=== PATIENT | male | born 2005 | race Caucasian/White ===

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

== ENCOUNTER 2024-04-13 07:34 | Emergency (ER) | payer BC, SELFPAY ==
--- NOTE | ~2024-04-13 | CT_ITS ---
EXAMINATION: CT abdomen pelvis wo con DATE: 04/13/2024 08:20 INDICATION: Flank pain TECHNIQUE: Computed tomography (CT) of the abdomen and pelvis was performed without intravenous contr ast. Automated exposure control and iterative reconstruction technique were employed. Exam dose: 133 1.33 mGy-cm total exam DLP. COMPARISON: 01/24/2022 CT abdomen pelvis FINDINGS: The lung bases are clear. Normal heart size. No pericardial or pleural effusion. The liver, gallbladder, bile ducts, pancreas, pancreatic duct and spleen are unremarkable. Normal morphology of the adrenal glands. There is a pinpoint calculus in the distal right ureter with mild right proximal hydroureteronephrosi s. No other urinary tract calculus or left hydroureteronephrosis The bladder is evacuated. The prostate gland and seminal vesicles appear normal. Normal caliber of the abdominal aorta. No intraperitoneal or retroperitoneal or pelvic mass lesion or adenopathy or ascites. Normal appendix. No bowel obstruction or intraperitoneal free air. Multiple shotty nonspecific mildly prominent but nonenlarged mesenteric and right lower quadrant lymph nodes. Included skeletal structures are unremarkable; no suspicious osteolytic or osteoblastic lesions. IMPRESSION: Pinpoint distal right ureteral calculus with mild proximal right hydroureteronephrosis Reviewed, dictated and finalized at [facility] Reviewed, dictated and finalized at [facility] [employer] IMPRESSION: Pinpoint distal right ureteral calculus with mild proximal right h ydroureteronephrosis
[2024-04-13 07:41] VITALS: BP 149/99; PULSE 73; RESP 16; TEMP 36.8; O2SAT 97
[2024-04-13] MEDS: ONDANSETRON INJ 4 MG/2 ML VIAL IV PUSH (08:01)
[2024-04-13] MEDS: SODIUM CHLORIDE 0.9% IV 1,000 ML 999 ML IV CONT (08:02)
[2024-04-13] MEDS: KETOROLAC 30 MG/ML VIAL (*BKC) IV PUSH (08:02)
[2024-04-13 08:12] LABS: Basophils Percent Auto 0.4 % (0.2-1.2); Eosinophils Absolute Auto 0.3 K/mm3 (0-0.3); Eosinophils Percent Auto 2.6 % (0-4.4); Hematocrit 46.1 % (42.0-52.0); Hemoglobin 15.9 g/dL (14.0-18.0); Immature Granulocyte Absolute 0.04 K/mm3 (0.00-0.031); Immature Granulocyte Percent A 0.4 % (0-0.5); Lymphocytes Absolute Auto 2.22 K/mm3 (0.9-3.2); Mean Corpuscular HGB Conc 34.5 g/dl (32-36); Mean Corpuscular Hemoglobin 28.9 pg (26-34); Mean Corpuscular Volume 83.7 fl (80-100); Monocytes Absolute Auto 0.8 K/mm3 (0.1-0.6); Monocytes Percent Auto 8.3 % (2.6-8.5); Neutrophils Absolute Auto 6.3 K/mm3 (1.3-6.7); Neutrophils Percent Auto 65.3 % (45.5-73.1); Platelet Count Result 262 k/mm3 (150-375); Red Blood Count 5.51 M/mm3 (4.6-6.20); Red Cell Distribution Width 12.4 % (11.5-14.5); White Blood Count 9.7 K/mm3 (4.5-10.0)
[2024-04-13 08:23] LABS: Alanine Aminotransferase 48 U/L (6-50); Albumin Level 4.8 g/dL (3.5-5.1); Alkaline Phosphatase 126 U/L (38-126); Anion Gap 9 mmol/L (4-12); Aspartate Amino Transferase 29 U/L (17-59); Blood Urea Nitrogen 9 mg/dL (9-20); Calcium 9.5 mg/dL (8.4-10.2); Carbon Dioxide 23 mmol/L (22-30); Chloride 108 mmol/L (98-107); Estimated CRCL calculation 140 ml/min; Estimated Glomerular Filt Rate > 60; Glucose 130 mg/dL (65-110); Potassium 3.8 mmol/L (3.4-5.0); Sodium 140 mmol/L (137-145)
[2024-04-13] MEDS: MORPHINE SULFATE (*CRX) 4 MG/ML INJ IV PUSH (09:49)
[2024-04-13 09:53] VITALS: BP 127/65; PULSE 86; RESP 18; O2SAT 98
[2024-04-13 09:56] LABS: Bacteria Urine None Seen /hpf; Mucus Urine Present /lpf; Need Manual Microscopic Reviewed; RBC Urine >100 /hpf (0-2); Squamous Epithelial Cell Urine Occasional /hpf (Few)
[2024-04-13 09:57] LABS: Add Urine Microscopic? YES; Appearance Urine Turbid (Clear); Bilirubin Urine 2+ (Negative); Blood Urine 3+ (Negative); Color Urine Orange (Yellow); Glucose Urine UA Trace mg/dL (Negative); Ketones Urine Trace mg/dL (Negative); Leukocyte Esterase Ur 1+ LEU/UL (Negative); Nitrate Urine Negative (Negative); Protein Urine 2+ mg/dL (Negative); Specific Grav Ur 1.035 (1.001-1.035); pH Urine 5.5 (5.0-9.0)
--- NOTE | 2024-04-13 10:15 | ED.GENADULT ---
HPI - General Adult General Chief complaint: Urogenital-Male Stated complaint: lower back pain vomiting, hx of kidney stones Time Seen by Provider: 04/13/24 07:39 History of Present Illness HPI narrative: Patient is a 18-year-old male who presents ER with right-sided flank pain. Moving around into lower abdomen on the right side. Associated with nausea vomiting. No urinary frequency urgency or dysuria. No hematuria. Has history kidney stones and this feels similar. Related Data Allergies Allergy/AdvReac Type Severity Reaction Status Date / Time cefdinir Allergy Intermediate FACIAL Verified 04/13/24 07:48 SWELLING Review of Systems Review of Systems: All systems reviewed & are unremarkable except as noted in HPI and below Constitutional: Constitutional: Reports no additional constitutional complaints Cardiovascular: Cardiovascular: Reports no additional cardiovascular complaints Respiratory: Respiratory: Reports no additional respiratory complaints Gastrointestinal: Gastrointestinal: Reports no additional gastrointestinal complaints Genitourinary: Genitourinary: Reports no additional male genitourinary complaints PMFSH Past Medical History Medical History Patient denies medical problems Surgical History Surgical History No pertinent past surgical history Social History Social History Smoking status: Never smoker Second hand tobacco smoke exposure: No Alcohol intake: never Substance use: never Substance use type: does not use Gender identity (if verbalized by the patient): Male Exam Narrative: GENERAL: Uncomfortable-appearing, well-nourished, and in no acute distress. HEAD: Normocephalic, atraumatic. ENT: Mucous membranes moist. CHEST: Clear to auscultation. No respiratory distress. HEART: Regular rate and rhythm. Normal peripheral pulses. ABDOMEN: Soft, nontender, nondistended. EXTREMITIES: Normal range of motion. No edema. SKIN: Warm, dry, no rash. NEURO: Alert and oriented x3. PSYCH: Normal mood and affect. Course Course Emergency Course: Pain improved. Informed of results. Discharge. Vital Signs Vital signs: Vital Signs Temperature 98.3 F 04/13/24 07:41 Pulse Rate 73 04/13/24 07:41 Respiratory Rate 16 04/13/24 07:41 Blood Pressure 149/99 H 04/13/24 07:41 Pulse Oximetry 97 04/13/24 07:41 Oxygen Delivery Room Air 04/13/24 07:41 Temperature 98.3 F 04/13/24 07:41 Pulse Rate 86 04/13/24 09:53 Respiratory Rate 18 04/13/24 09:53 Blood Pressure 127/65 04/13/24 09:53 Pulse Oximetry 98 04/13/24 09:53 Oxygen Delivery Room Air 04/13/24 07:41 Medical Decision Making Vital Signs Vital Signs: Vital Signs Temperature 98.3 F 04/13/24 07:41 Pulse Rate 73 04/13/24 07:41 Respiratory Rate 16 04/13/24 07:41 Blood Pressure 149/99 H 04/13/24 07:41 Pulse Oximetry 97 04/13/24 07:41 Oxygen Delivery Room Air 04/13/24 07:41 Temperature 98.3 F 04/13/24 07:41 Pulse Rate 86 04/13/24 09:53 Respiratory Rate 18 04/13/24 09:53 Blood Pressure 127/65 04/13/24 09:53 Pulse Oximetry 98 04/13/24 09:53 Oxygen Delivery Room Air 04/13/24 07:41 Lab Data 04/13/24 08:06 04/13/24 08:06 Labs: Lab Results 04/13/24 04/13/24 Range/Units 08:06 09:40 WBC 9.7 (4.5-10.0) K/mm3 RBC 5.51 (4.6-6.20) M/mm3 Hgb 15.9 (14.0-18.0) g/dL Hct 46.1 (42.0-52.0) % MCV 83.7 (80-100) fl MCH 28.9 (26-34) pg MCHC 34.5 (32-36) g/dl RDW 12.4 (11.5-14.5) % Plt Count 262 (150-375) k/mm3 MPV 10.0 (7.4-10.4) fl Immature Gran % (Auto) 0.4 (0-0.5) % Neut % (Auto) 65.3 (45.5-73.1) % Lymph % (Auto) 23.0 (18.3-44.2) % [place] % (Auto) 8.3 (2.6-8.5) % Eos % (Auto) 2.6 (0-4.4) % Baso % (Auto) 0.4 (0.2-1.2) % Lymph # (Auto) 2.22 (0.9-3.2) K/mm3 [place] # (Auto) 0.8 H (0.1-0.6) K/mm3 Eos # (Auto) 0.3 (0-0.3) K/mm3 Baso # (Auto) 0.0 (0.0-0.1) K/mm3 Abs Immat Gran (auto) 0.04 H (0.00-0.031) K/mm3 Absolute Neuts (auto) 6.3 (1.3-6.7) K/mm3 Absolute Nucleated RBC 0.000 (0.0-0.012) K/mm3 Nucleated RBC % 0.0 (0.0-0.2) % Sodium 140 (137-145) mmol/L Potassium 3.8 (3.4-5.0) mmol/L Chloride 108 H (98-107) mmol/L Carbon Dioxide 23 (22-30) mmol/L Anion Gap 9 (4-12) mmol/L BUN 9 (9-20) mg/dL Creatinine 1.00 (0.7-1.3) mg/dL Estim Creat Clear Calc 140 ml/min Estimated GFR > 60 (59 - ) Glucose 130 H (65-110) mg/dL Calcium 9.5 (8.4-10.2) mg/dL Total Bilirubin 1.0 (0.2-1.3) mg/dL AST 29 (17-59) U/L ALT 48 (6-50) U/L Alkaline Phosphatase 126 (38-126) U/L Total Protein 8.0 (6.3-8.2) g/dL Albumin 4.8 (3.5-5.1) g/dL Urine Color [place] H (Yellow) Urine Appearance Turbid H (Clear) Urine pH 5.5 (5.0-9.0) Ur Specific [place] 1.035 (1.001-1.035) Urine Protein 2+ H (Negative) mg/dL Urine Glucose (UA) Trace H (Negative) mg/dL Urine Ketones Trace H (Negative) mg/dL Ur Blood (Man) 3+ H (Negative) Urine Nitrate Negative (Negative) Urine Bilirubin 2+ H (Negative) Urine Urobilinogen 1.0 (<2.0) mg/dL Add Ur Microanalysis Reviewed Leukocyte Esterase Rfl 1+ H (Negative) HEATH/UL Urine RBC >100 H (0-2) /hpf Urine WBC 11-20 H (0-3) /hpf Ur Squamous Epith Cells Occasional (Few) /hpf Urine Bacteria None seen /hpf Urine Casts 11-20 Urine Mucus Present /lpf Imaging Data Radiologist's impression: ITS Impressions Abdomen/Pelvis CT 04/13/24 08:43 IMPRESSION: Pinpoint distal right ureteral calculus with mild proximal right hydroureteronephrosis Discharge Plan Discharge Clinical Impression: Ureterolithiasis Patient Disposition: Home, Self-Care Condition: Stable Instructions: Ureteral Stones (ED) Additional Instructions: Return to the emergency department if you develop severe abdominal pain, severe nausea and vomiting to the point where you are unable to keep down fluids, if you develop chest pain or difficulty breathing, blood in your stool, dizziness or fainting, or if you develop any other new or concerning symptoms as these could be signs of more serious medical illness. Try to stay well hydrated. Patient Language: [place] Prescriptions: New hydrocodone-acetaminophen 5-325 mg tablet 1 tablet PO Q6H PRN (Reason: pain) Qty: 10 0RF tamsulosin 0.4 mg capsule 0.4 mg PO DAILY Qty: 5 0RF ondansetron 4 mg tablet,disintegrating 4 mg PO Q6H PRN (Reason: nausea and vomiting) Qty: 10 0RF No Action famotidine [Pepcid] 40 mg tablet 40 mg PO DAILY Qty: 10 0RF prednisone 50 mg tablet 50 mg PO DAILY Qty: 5 0RF Follow-up/Referrals: Raf Callahan MD [Physician] - 1 Week PHYSICIAN,FLEET MANAGER [Primary Care Provider] -
--- OUTSIDE RECORDS SUMMARY | 2024-04-20 04:23 | XMS_ITS | Referral Summary ---
Author Organization [facility] [employer] Address [address] [place] [address] Care Team Providers Care Hospice Care Transitions Coordinator Name Role Phone Seun Phillips MD Primary Care Provider [phone] Source Comments [facility] [employer],non-owned Affiliates and Associated Physician Practices is amultiple site organization consisting of ambulatory clinics and hospital sitesin [place], [place], [place] and [place]. This disclosure is being madepursuant to the Care Everywhere program and may not contain all information available regarding this patient. Last updated 17.[facility] [employer] Allergies Active Allergy Reactions Criticality Noted Date Comments Omnicef Swelling 01/10/2010 Medications * Be aware that medications may not be up to date on this document. Alwaysverify current medications with the patient. Medication Sig Dispensed Refills Start Date End Date Status ibuprofen (ADVIL; MOTRIN) 100 MG/5ML SUSP suspension Take 300 mg by mouth every 6 hours as needed. Active ondansetron (ZOFRAN) 4 MG tablet Take 1 Tab by mouth every 6 hours as needed for Nausea/Vomiting. 4 Tab 0 01/10/2010 Active Active Problems Problem Noted Date Diagnosed Date Fever 01/10/2010 Abdominal pain, epigastric 01/10/2010 Social History Tobacco Use Types Packs/Day Years Used Date Smoking Tobacco: Never Assessed Sex and Gender Information Value Date Recorded Sex Assigned at Not on file Gender Identity Not on file Sexual Orientation Not on file Last Filed Vital Signs Vital Sign Reading Time Taken Comments Blood Pressure 114/58 03/11/2012 8:10 AM QUALITY IMPROVEMENT CONSULTANT Pulse 92 03/11/2012 8:10 AM QUALITY IMPROVEMENT CONSULTANT Temperature 37.1 ??C (98.8 ??F) 03/11/2012 8:25 AM CS T Respiratory Rate 22 03/11/2012 8:10 AM QUALITY IMPROVEMENT CONSULTANT Oxygen Saturation 100% 01/10/2010 3:31 PM CDT Inhaled Oxygen Concentration - - Weight 44.9 kg (98 lb 15.8 oz) 03/11/2012 8:10 A M QUALITY IMPROVEMENT CONSULTANT Height - - Body Mass Index - - Plan of Treatment Not on file Care Teams Hospice Care Transitions Coordinator Relationship Specialty Start Date End Date Seun Phillips MD PCP - General Pediatrics 08/06/13
--- OUTSIDE RECORDS SUMMARY | 2024-04-20 04:23 | XMS_ITS | Encounter Summary ---
Author Organization [facility] Address [address] [place] [address] Care Team Providers Care Rewinder Name Role Phone Seun Phillips MD Primary Care Provider [phone] Reason for Visit * Reason Onset Date Comments Referral 04/08/2020 Encounter Details Date Type Department Care Team (Late st Contact Info) Description 04/08/[address] [facility] [employer] [facility] [place] [address] Bekah Nunez, regulatory scientist Social History Tobacco Use Types Packs/Day Years Used Date Smoking Tobacco: Never Assessed Sex and Gender Information Value Date Recorded Sex Assigned at Not on file Gender Identity Not on file Sexual Orientation Not on file documented as of this encounter Plan of Treatment Not on file documented as of this encounter Visit Diagnoses Not on filedocumented in this encounter Care Teams Rewinder Relationship Specialty Start Date End Date Seun Phillips MD PCP - General Pediatrics 08/06/13 documented as of this encounter
--- OUTSIDE RECORDS SUMMARY | 2024-04-20 04:23 | XMS_ITS | Encounter Summary ---
Author Organization [facility] Address [address] [place] [address] Care Team Providers Care Pin Inserter Name Role Phone Seun Orta MD Primary Care Provider Reason for Visit * Reason Comments Fever Fever since sat. Pt to pmd today and sent here for xray to r/o pneumonia and for dehydration. FSC neg at PMD. Emesis x1 yesterday and today. LCTAB w/ good aeration and no increased wob. Sats 100% on RA. Urine x 2 today w/ last uop at 1315. Encounter Details Date Type Department Care Team (Late st Contact Info) Description 01/10/2010 4:15 PM CDT - 01/10/2010 6:30 PM CDT Emergency ER at [address] [id number] Conversion, Doctor Jose Flores MD [address] [place] [id number] Fever; Abdominal pain, epigastric Discharge Disposition: Home or Self Care Social History Tobacco Use Types Packs/Day Years Used Date Smoking Tobacco: Never Assessed Sex and Gender Information Value Date Recorded Sex Assigned at Not on file Gender Identity Not on file Sexual Orientation Not on file documented as of this encounter Last Filed Vital Signs Vital Sign Reading Time Taken Comments Blood Pressure 110/62 01/10/2010 6:29 PM CDT Pulse 90 01/10/2010 6:29 PM CDT Temperature 36.7 ??C (98 ??F) 01/10/2010 6:29 PM CDT Respiratory Rate 22 01/10/2010 6:29 PM CDT Oxygen Saturation 100% 01/10/2010 3:31 PM CDT Inhaled Oxygen Concentration - - Weight 31.8 kg (70 lb 1.7 oz) 01/10/2010 3:31 PM CDT Height - - Body Mass Index - - documented in this encounter Discharge Instructions * Discharge Instructions* Ashvin Varela MD - 01/10/2010 6:18 PM CDT Abdominal Pain (Non-Specific) Your exam might not show the exact reason you have abdominal pain. Since there are many different causes of abdominal pain, another checkup and more tests may be needed. It is very important to follow up for lasting (persistent) or worsening symptoms. A possible cause of abdominal pain in any person who still has their appendix is acute appendicitis. Appendicitis is often hard to diagnosis. Normal blood tests, urine tests, ultrasound and CAT Scan do not completely rule out early appendicitis orother causes of abdominal pain. Sometimes, only the changes which happen over time will allow appendicitis and other causes of abdominal pain to be determined. Other potential problems that may require surgery may also take time to become more apparent. Because of this, it is important you follow all of the instructions below. HOME CARE INSTRUCTIONS ?? Rest. ?? Do not eat solid food until your pain is gone. ?? While you have pain: Stay on a clear liquid diet. A clear liquid is one you can see through (water, weak tea, broth or bouillon, mikael angely, jell-o, New- Aid, Gatorade, apple juice, popsicles or ice chips). ?? When your pain is gone: Start a light diet (dry toast, crackers, applesauce, white rice, bananas, broth or bouillon). Increase the diet slowly as long as it does not bother you. No dairy products (including cheese and eggs) and no spicy, fatty, fried or high fiber foods. ?? No alcohol, caffeine or cigarettes. ?? Take your regular medicines unless your caregiver told you not to. ?? Take any prescribed medicine as directed. ?? Only take dexw-tcl-yaoacpz or prescription medicines for pain, discomfort or fever as directed by your caregiver. If your caregiver has given you a follow-up appointment, it is very important to keep that appointment. Not keeping the appointment could result in a permanent injury and/or lasting (chronic) pain and/or disability. If there is any problem keeping the appointment, you must call back to this facility for assistance. SEEK IMMEDIATE MEDICAL CARE IF: ?? Your pain is not gone in 24 hours. ?? Your pain becomes worse, changes location or feels different. ?? You have a fever or shaking chills. ?? You keep throwing up or can not drink liquids. ?? You see blood when you throw up or see blood in your bowel movements. ?? Your bowel movements become dark or black. ?? You move your bowels frequently. ?? Your bowel movements stop (become blocked) or you can not pass gas. ?? You have bloody, frequent or painful urination. ?? Your skin or the whites of your eyes look yellow. ?? Your stomach becomes bloated or bigger. ?? You notice vaginal bleeding or discharge. ?? You have dizziness or fainting. ?? You have chest or back pain. ?? There are new symptoms or there is anything else that worries you. If you have questions or concerns, call your caregiver. MAKE SURE YOU: ?? Understand these instructions. ?? Will watch your condition. ?? Will get help right away if you are not doing well or get worse. Document Released: 03/26/2006 Document Re-Released: 03/08/2009 ExitCare?? Patient Information ??2009 [employer]. Abdominal Pain Abdominal (belly) pain can be caused by many things. Your caregiver decides the seriousness of yourpain by an examination and possibly blood tests and x-rays. Many cases can be observed and treated at home. Most abdominal pain in children is functional. This means it is not caused by a disease andwill probably improve without treatment. However, in many cases, more time must pass before a clear cause of the pain can be found. Before that point, it may not be known if you need more testing, orif hospitalization or surgery is needed. HOME CARE INSTRUCTIONS: ?? Do not take or give laxatives unless directed by your caregiver. ?? Take pain medication only if ordered by your caregiver. ?? Only take xagj-wqz-judgfsj or prescription medicines for pain, discomfort or fever as directed by your caregiver. ?? Try a clear liquid diet - broth, tea, or water as ordered by your caregiver. Slowly move to a bland diet as tolerated. SEEK IMMEDIATE MEDICAL ATTENTION IF: ?? The pain does not go away. ?? An oral temperature above 102?? F (38.9?? C) develops or as directed by your caregiver. ?? Repeated vomiting occurs. ?? The pain is felt only in portions of the abdomen. The right side could possibly be appendicitis.In an adult, the left lower portion of the abdomen could be colitis or diverticulitis. ?? Blood is being passed in stools (bright red or black tarry stools). MAKE SURE YOU: ?? Understand these instructions. ?? Will watch your condition. ?? Will get help right away if you are not doing well or get worse. Document Released: 03/26/2006 Document Re-Released: 06/22/2009 ExitCare?? Patient Information ??2009 [employer]. * Discharge Instructions* Document, Scanned - 01/13/2010 7:56 AM CDT documented in this encounter Medications at Time of Discharge Medication Sig Dispensed Refills Start Date End Date ibuprofen (ADVIL; MOTRIN) 100 MG/5ML SUSP suspension Take 300 mg by mouth every 6 hours as needed. ondansetron (ZOFRAN) 4 MG tablet Take 1 Tab by mouth every 6 hours as needed for Nausea/Vomiting. 4 Tab 0 01/10/2010 documented as of this encounter ED Notes * Dahiana Sullivan RN - 01/10/2010 6:30 PM CDT Pt discharged home with mom and grandma. No acute distress. * Dahiana Sullivan RN - 01/10/2010 6:28 PM CDT Pt tolerated enema well. Had formed stool x 2. Mom stated she is ready to go home now. * Jose Flores MD - 01/10/2010 4:21 PM CDT 01/10/2010 4:21 PM Jovanny Zaman [id number] History Chief Complaint Patient presents with ??? Fever Fever since sat. Pt to pmd today and sent here for xray to r/o pneumonia and for dehydration. FSC neg at PMD. Emesis x1 yesterday and today. LCTAB w/ good aeration and no increased wob. Sats 100% on RA. Urine x 2 today w/ last uop at 1315. HPI Comments: 4yo male with fever x 3 days or some emesis no diarrhea some epigastric discomfort Here via PMD's office for evalaution PMH unremarkable ROS no fever no N/V/D PE wn wd in no distress pink Ears- lungs clear RRR abd soft NT,ND alert awake CBC, Chem 7, amylase - wnl CXR, abd obstructive series +FOS - needs a fleets enema IV NS bolus Home on miralax I have personally seen and examined this patient. I have fully participated in the care of this patient. I have reviewed all pertinent clinical information, including history, physical exam and plan.I have reviewed the nurses notes. I have reviewed available labs and radiographic studies. Viral syndrone Dehydration constipation No past medical history on file. No past surgical history on file. History Social History ??? Marital Status: Single Spouse Name: N/A Number of Children: N/A ??? Years of Education: N/A Occupational History ??? Not on file. Social History Main Topics ??? Tobacco Use: Not on file ??? Alcohol Use: Not on file ??? Drug Use: Not on file ??? Sexually Active: Not on file Other Topics Concern ??? Not on file Social History Narrative ??? No narrative on file Medications Current outpatient prescriptions Medication Sig Dispense Refill ??? ibuprofen (ADVIL; MOTRIN) 100 MG/5ML SUSP suspension Take 100 mg by mouth every 6 hours as needed. Review of Systems BP 108/71 Pulse 146 Temp 102.8 ??F Resp 20 Wt 31.8 kg (70 lb 1.7 oz) Physical Exam Procedures Procedures EKG Interpretation Lab/SPO2 Interpretation Medical Decision Making I have reviewed the: Nursing Notes and Vitals. I have interpreted the following results: X-Ray. Progress Notes Sent in by PMD - see labs IV fluids KUB +FOS Needs fleets enema ED Plan/Course Fever not obvious in terms of source Home on miralax Clinical Impression Dehydration Constipation Febrile illness Viral syndrone Encounter Diagnosis Name Primary? FEVER * Ashvin Varela MD - 01/10/2010 4:00 PM CDT 01/10/2010 4:00 PM Jovanny Zaman [id number] History Chief Complaint Patient presents with ??? Fever Fever since sat. Pt to pmd today and sent here for xray to r/o pneumonia and for dehydration. FSC neg at PMD. Emesis x1 yesterday and today. LCTAB w/ good aeration and no increased wob. Sats 100% on RA. Urine x 2 today w/ last uop at 1315. HPI Comments: Pt with fever and epigastric pain x2 days. Saw PMD who wants IVF and CXR. Poor PO. Vomitting 1-2x for three days. No diarrhea. Fever The history is provided by the patient and parent. The current episode started 2 days ago. The problem occurs constantly. The maximum temperature noted was 103 - 104 F. There has been vomiting, cough, abdominal pain, decreased appetite and decreased urine volume. There has been no chest pain, no sleepiness, no diarrhea, no congestion, no headaches, no sore throat, no muscle aches, no URI, no ear pain, no chills and no rash.The vomiting occurs rarely. The emesis has an appearance of stomach contents. The vomiting is associated with pain. No past medical history on file. No past surgical history on file. History Social History ??? Marital Status: Single Spouse Name: N/A Number of Children: N/A ??? Years of Education: N/A Occupational History ??? Not on file. Social History Main Topics ??? Tobacco Use: Not on file ??? Alcohol Use: Not on file ??? Drug Use: Not on file ??? Sexually Active: Not on file Other Topics Concern ??? Not on file Social History Narrative ??? No narrative on file Medications Current outpatient prescriptions Medication Sig Dispense Refill ??? ibuprofen (ADVIL; MOTRIN) 100 MG/5ML SUSP suspension Take 100 mg by mouth every 6 hours as needed. Review of Systems Constitutional: Positive for fever, activity change and appetite change. Negative for chills. HENT: Positive for neck stiffness. Negative for congestion, sore throat and rhinorrhea. Respiratory: Positive for cough. Cardiovascular: Negative for chest pain. Gastrointestinal: Positive for vomiting and abdominal pain. Negative for diarrhea. Genitourinary: Positive for decreased urine volume. Skin: Negative. Neurological: Negative for seizures, numbness and headaches. BP 108/71 Pulse 146 Temp 102.8 ??F Resp 20 Wt 31.8 kg (70 lb 1.7 oz) Physical Exam Constitutional: He appears well-developed and well-nourished. No distress. HENT: Head: Atraumatic. Right Ear: Tympanic membrane normal. Left Ear: Tympanic membrane normal. Nose: No nasal discharge. Mouth/Throat: Mucous membranes are dry. No tonsillar exudate. Oropharynx is clear. Pharynx is normal. Eyes: Conjunctivae are normal. Pupils are equal, round, and reactive to light. Right eye exhibits no discharge. Left eye exhibits no discharge. Neck: Normal range of motion. Neck supple. Cardiovascular: Normal rate and regular rhythm. Pulses are palpable. No murmur heard. Pulmonary/Chest: Effort normal and breath sounds normal. There is normal air entry. No respiratory distress. Air movement is not decreased. He has no wheezes. He exhibits no retraction. Abdominal: Soft. Bowel sounds are normal. He exhibits no distension. No tenderness. He has no guarding. Musculoskeletal: Normal range of motion. He exhibits no deformity and no signs of injury. Neurological: He is alert. No cranial nerve deficit. Skin: Skin is warm. Capillary refill takes less than 3 seconds. No rash noted. No cyanosis. Procedures Procedures EKG Interpretation Lab/SPO2 Interpretation Medical Decision Making Progress Notes ED Plan/Course Abdominal pain and fever: No evidence of serious bacterial infection based on labs or CXR. Suspect viral gastritis. Pt appears improved following IVF and zofran. Will d/c pt to home with Rx for zofran. D/w Dr. Sam who agrees with plan. Clinical Impression Encounter Diagnosis Name Primary? FEVER * Dahiana Sullivan RN - 01/10/2010 3:41 PM CDT Assumed care of pt. Mom and grandmother at bedside. Pt awake and in no acute distress. Mom reports illness since Sat with c/o sore throat, emesis x 2, (once today and yesterday), mid umbilicus abd pain, and fever. Has been drinking sips and voided twice today Was seen at PMD today and referred herefor CXR and dehydration evaluation Dr Varela at bedside to examine. documented in this encounter Plan of Treatment Not on file documented as of this encounter Procedures Procedure Name Priority Date/Time Associated Diagnosis Comments XR ABD OBSTRUCTION SERIES 2VW STAT 01/10/2010 5:26 PM CDT Abdominal pain, epigastric CULTURE BLOOD Timed 01/10/2010 4:40 PM CDT DIFFERENTIAL MANUAL STAT 01/10/2010 4 :40 PM CDT CBC W AUTO DIFFERENTIAL STAT 01/10/2010 4:40 PM CDT COMPREHENSIVE METABOLIC PANEL STAT 01/10/2010 4:40 PM CDT LIPASE BLOOD STAT 01/10/2010 4:40 PM CDT AMYLASE BLOOD STAT 01/10/2010 4:40 PM CDT XR CHEST 2VW STAT 01/10/2010 4:13 PM CDT Fever documented in this encounter Results * XR ABD OBSTR SERIES (01/10/2010 5:26 PM CDT) Anatomical Region Laterality Modality Abdomen Radiographic Wanda ging 01/11/2010 6:34 AM CDT Impressions 01/11/2010 10:05 AM CDT Normal. D: Herber Montgomery MD Narrative 01/11/2010 10:05 AM CDT Exam: Abdomen, supine and upright views Date: 01/10/2010 Findings: The bowel gas pattern is normal, without evidence of obstruction, free air or pneumatosis. Stool and air are seen in the rectum. There are no air-fluid levels. The contours of the solid organs are normal. There are no abnormal calcifications. The lung bases are clear. Procedure Note Deb, [place], MD - 01/11/2010 Exam: Abdomen, supine and upright views Date: 01/10/2010 Findings: The bowel gas pattern is normal, without evidence of obstruction, free air or pneumatosis. Stool and air are seen in the rectum. There are no air-fluid levels. The contours of the solid organs are normal. There are no abnormal calcifications. The lung bases are clear. IMPRESSION Normal. D: Herber Montgomery MD Ashvin Varela MD DIAGNOSTIC IMAGING O RDERABLES * (ABNORMAL) DIFFERENTIAL MANUAL (01/10/2010 4:40 PM CDT) Comment Manual Diff Done [facility] Band % Manual 8 % [facility] Neutrophils % Manual 71(H) 20 - 70 % [facility] Lymphocytes % Manual 9(L) 16 - 70 % [facility] Monocytes % Manual 12 3 - 13 % [facility] RBC Morphology Normal [facility] BLOOD SPECIMEN / Unknown 01/10/2010 4:40 PM CDT 01/10/2010 5:04 PM CDT Jose Flores MD LAB - HEMATOLOGY O RDERALAURYN Performing Organization Address [facility] de Phone Number [facility] [address] [place] [address] * CULTURE BLOOD (01/10/2010 4:40 PM CDT) Report [facility] Comment: Final - BOTTLE(S) RECEIVED- AEROBIC/ANAEROBIC BOTTLES CULTURE No growth PERIPHERAL BLOOD / Unknown 01/10/2010 4:40 PM CDT 01/10/2010 4:51 PM CDT Ashvin Varela MD LAB - MICROBIOLOGY O RDERABLES Performing Organization Address [facility] Co de Phone Number [facility] [address] [place] [address] * CBC W AUTO DIFFERENTIAL (01/10/2010 4:40 PM CDT) WBC 11.26 5.0 - 14.5 K/cumm [facility] RBC 4.46 3.90 - 5.30 mill/cumm [facility] Hemoglobin 12.3 11.5 - 13.5 gm/dl [facility] Hematocrit 35.4 34.0 - 40.0 % [facility] MCV 79.4 75.0 - 87.0 cu microns [facility] MCH 27.6 24.0 - 30.0 uug [facility] MCHC 34.7 31.0 - 37.0 % [facility] RDW 12.8 % [facility] MPV 11.3 fl [facility] Platelet Count 294 100 - 400 K/cumm [facility] Comment Manual Diff Done [facility] BLOOD SPECIMEN / Unknown 01/10/2010 4:40 PM CDT 01/10/2010 4:50 PM CDT Ashvin Varela MD LAB - HEMATOLOGY ORD ERABLES Performing Organization Address [facility] Co de Phone Number [facility] [address] [place] [address] * (ABNORMAL) LIPASE BLOOD (01/10/2010 4:40 PM CDT) Lipase 22(L) 23 - 300 Units/L [facility] Specimen Type/Conditio n mod hemolysis [facility] BLOOD SPECIMEN / Unknown 01/10/2010 4:40 PM CDT 01/10/2010 4:50 PM CDT Ashvin Varela MD LAB - CHEMISTRY ORDE LORENZO Performing Organization Address City/[facility]/ZIP Co de Phone Number [facility] [address] [place] [address] * AMYLASE BLOOD (01/10/2010 4:40 PM CDT) Amylase 33 30 - 100 Units/L [facility] Specimen Type/Conditio n mod hemolysis [facility] BLOOD SPECIMEN / Unknown 01/10/2010 4:40 PM CDT 01/10/2010 4:50 PM CDT Ashvin Varela MD LAB - CHEMISTRY ORDE LORENZO Performing Organization Address City/[facility]/ZIP Co de Phone Number [facility] [address] [place] [address] * (ABNORMAL) COMPREHENSIVE METABOLIC PANEL (01/10/2010 4:40 PM CDT) Sodium 136(L) 137 - 145 mmol/L [facility] Potassium 5.2(H) 3.5 - 5.1 mmol/L [facility] Chloride 102 98 - 107 mmol/L [facility] CO2 20.3 18 - 27 mmol/L [facility] Glucose 95 70 - 106 mg/dl [facility] BUN 12.8 7 - 18 mg/dl [facility] Calcium 9.3 8.8 - 10.1 mg/dl [facility] Bilirubin Total 1.5(H) 0.6 - 1.4 mg/dl [facility] Protein Total 8.4(H) 5.9 - 7.8 gm/dl [facility] Albumin 5.0 3.5 - 5.2 gm/dl [facility] ALT 7(L) 10 - 25 Units/L [facility] AST 67(H) 15 - 50 Units/L [facility] Alkaline Phosphatase 238 150 - 380 Units/L [facility] Creatinine 0.42 0.03 - 0.59 mg/dl [facility] Specimen Type/Condition mod hemolysis [facility] BLOOD SPECIMEN / Unknown 01/10/2010 4:40 PM CDT 01/10/2010 4:50 PM CDT Ashvin Varela MD LAB - CHEMISTRY JOBY VENTURA [facility] Organization Address City/State/ZIP Co de Phone Number [facility] [address] [place] [phone] * XR CHEST PA AND LATERAL (01/10/2010 4:13 PM CDT) Anatomical Region Laterality Modality Chest Radiographic Wanda ging 01/10/2010 4:33 PM CDT Impressions 01/10/2010 4:33 PM CDT Normal Narrative 01/10/2010 4:33 PM CDT Chest series, 2 views 01/10/2010 Lungs, heart, and mediastinum are normal. Procedure Note Giles Phelan MD - 01/10/2010 Chest series, 2 views 01/10/2010 Lungs, heart, and mediastinum are normal. IMPRESSION Normal Ashvin Varela MD DIAGNOSTIC IMAGING O RDERABLES documented in this encounter Visit Diagnoses Diagnosis Fever Fever, unspecified Abdominal pain, epigastric documented in this encounter Administered Medications Inactive Administered Medications - up to 3 most recent administrations Medication Order MAR Action Action Date Dose Rate Site 0.9% nacl infusion at 600 mL/hr, Intravenous, ONCE, 1 dose, On Sun01/10/10 at 1600, 600 mL NS over 1 hour $ Given 01/10/2010 4:45 PM CDT 600 mL/hr 600 mL/hr fleet pediatric (FLEET PEDIATRIC) enema 1 Enema 1 enema, Rectal, ONCE, 1 dose, On Sun01/10/10 at 1745 $ Given 01/10/2010 6:10 PM CDT 1 enema fleet pediatric (FLEET PEDIATRIC) enema ADS Med 1 dose, Starting on Sun01/10/10 at 1803, Until Sun01/10/10 at 1810, DAHIANA SULLIVAN: Cabinet Override ondansetron (ZOFRAN) injection 3.18 mg 3.18 mg (0.1 mg/kg ? 31.8 kg), Intravenous, ONCE, 1 dose, On Sun01/10/10 at 1700 $ Given 01/10/2010 4:45 PM CDT 3.18 mg documented in this encounter Active and Recently Administered Medications Times are shown in CDT. Scheduled Medication Order 01/08/2010 01/09/2010 01/10/2010 0.9% nacl infusion (COMPLETED) at 600 mL/hr, Intravenous, ONCE, 1 dose, On Sun01/10/10 at 1600, 600 mL NS over 1 hour 1645 ($ Given - Prov ider: Dahiana Sullivan RN)1746 (Rx Stopped - Provider: Dahiana Sullivan RN) fleet pediatric (FLEET PEDIATRIC) enema 1 Enema (COMPLETED) 1 enema, Rectal, ONCE, 1 dose, On Sun01/10/10 at 1745 1810 ($ Given - Prov ider: Dahiana Sullivan RN) ondansetron (ZOFRAN) injection 3.18 mg (COMPLETED) 3.18 mg (0.1 mg/kg ? 31.8 kg), Intravenous, ONCE, 1 dose, On Sun01/10/10 at 1700 1645 ($ Given - Prov ider: Dahiana Sullivan RN) documented in this encounter Care Teams Pin Inserter Relationship Specialty Start Date End Date Seun Orta MD [address] [place] [address] PCP - General 01/10/10 03/10/12 documented as of this encounter
--- OUTSIDE RECORDS SUMMARY | 2024-04-20 04:23 | XMS_ITS | Clinical Summary ---
Author Organization [facility] Address [address] [place] [address] Care Team Providers Care Associate Director Regulatory Affairs Name Role Phone Seun Phillips MD Primary Care Provider [phone] Source Comments [facility],non-owned Affiliates and Associated Physician Practices is amultiple site organization consisting of ambulatory clinics and hospital sitesin [place], [place], [place] and [place]. This disclosure is being madepursuant to the Care Everywhere program and may not contain all information available regarding this patient. Last updated 17.[facility] Allergies Active Allergy Reactions Criticality Noted Date [...] Comments Blood Pressure 114/58 03/11/2012 8:10 AM ACCOUNT SUPPORT MANAGER Pulse 92 03/11/2012 8:10 AM ACCOUNT SUPPORT MANAGER Temperature 37.1 ??C (98.8 ??F) 03/11/2012 8:25 AM CS T Respiratory Rate 22 03/11/2012 8:10 AM ACCOUNT SUPPORT MANAGER Oxygen Saturation 100% 01/10/2010 3:31 PM CDT Inhaled Oxygen Concentration - - Weight 44.9 kg (98 lb 15.8 oz) 03/11/2012 8:10 A M ACCOUNT SUPPORT MANAGER Height - - Body Mass Index - - Plan of Treatment Health Maintenance Due Date Last Done Comments HIV SCREENING 11/09/2018 HPV VACCINE (1 - Male 3-dose series) 11/09/2018 MENINGOCOCCAL (Group B) VACC INE (1 of 2 - Standard) 2019 HEPATITIS C SCREENING 11/05/2021 DTAP/TDAP/TD VACCINES (1 - Tdap) 11/09/2022 HEPATITIS B VACCINE (1 of 3 - 19+ 3-dose series) 11/09/2022 COVID-19 VACCINE (1 - 2023-2 5 season) 2023 INFLUENZA VACCINE (#1) 2023 DEPRESSION SCREENING 04/09/2024 ZOSTER VACCINE (1 of 2) 11/09/2053 HIB VACCINE Aged Out No longer eligi ble based on patient's age to complete this topic MENINGOCOCCAL VACCINE Aged Out No jevon ab eligible based on patient's age to complete this topic PNEUMOCOCCAL VACCINE Aged Out No long er eligible based on patient's age to complete this topic Care Teams Associate Director Regulatory Affairs Relationship Specialty Start Date End Date Seun Phillips MD PCP - General Pediatrics 08/06/13
--- OUTSIDE RECORDS SUMMARY | 2024-04-20 04:23 | XMS_ITS | Patient Health Summary ---
Author Organization [facility] Address [address] [place] [address] Care Team Providers Care Loom Fixer Name Role Phone Seun Phillips MD Primary Care Provider [phone] Note from [facility],non-owned Affiliates and Associated Physician Practices is amultiple site organization consisting of ambulatory clinics and hospital sitesin [place], [place], [place] and [place]. This disclosure is being madepursuant to the Care Everywhere program and may not contain all information available regarding this patient. Last updated 17.[facility] [employer] Allergies * Omnicef(Swelling) Medications * Be aware that medications may not be up to date on this document. Alwaysverify current medications with the patient. * ibuprofen (ADVIL; MOTRIN) 100 MG/5ML SUSP suspension Take 300 mg by mouth every 6 hours as needed. * ondansetron (ZOFRAN) 4 MG tablet(Started 01/10/2010) Take 1 Tab by mouth every 6 hours as needed for Nausea/Vomiting. Active Problems Problem Noted Date Diagnosed Date [...] Comments Blood Pressure 114/58 03/11/2012 8:10 AM WEB INTERFACE DEVELOPER Pulse 92 03/11/2012 8:10 AM WEB INTERFACE DEVELOPER Temperature 37.1 ??C (98.8 ??F) 03/11/2012 8:25 AM CS T Respiratory Rate 22 03/11/2012 8:10 AM WEB INTERFACE DEVELOPER Oxygen Saturation 100% 01/10/2010 3:31 PM CDT Inhaled Oxygen Concentration - - Weight 44.9 kg (98 lb 15.8 oz) 03/11/2012 8:10 A M WEB INTERFACE DEVELOPER Height - - Body Mass Index - - Procedures * XR ABD OBSTRUCTION SERIES 2VW(Performed 01/10/2010) Performed for Abdominal pain, epigastric * DIFFERENTIAL MANUAL(Performed 01/10/2010) * CBC W AUTO DIFFERENTIAL(Performed 01/10/2010) * LIPASE BLOOD(Performed 01/10/2010) * AMYLASE BLOOD(Performed 01/10/2010) * COMPREHENSIVE METABOLIC PANEL(Performed 01/10/2010) * CULTURE BLOOD(Performed 01/10/2010) * XR CHEST 2VW(Performed 01/10/2010) Performed for Fever Results * XR ABD OBSTR SERIES (01/10/2010 5:26 PM CDT) Anatomical Region Laterality Modality Abdomen Radiographic [place] 01/11/2010 6:34 AM CDT Impressions 01/11/2010 [...] The lung bases are clear. Procedure Note Albania Boyd MD - 01/11/2010 Exam: Abdomen, supine and [...] Varela MD DIAGNOSTIC IMAGING O RDERABLES * CULTURE BLOOD (01/10/2010 4:40 PM CDT) Report [facility] Comment: Final - BOTTLE(S) RECEIVED- AEROBIC/ANAEROBIC BOTTLES CULTURE No growth PERIPHERAL BLOOD / Unknown 01/10/2010 4:40 PM CDT 01/10/2010 4:51 PM CDT Ashvin Varela MD LAB - MICROBIOLOGY O RDERABLES Performing Organization Address [facility] de Phone Number [facility] [address] [place] [address] * (ABNORMAL) DIFFERENTIAL MANUAL (01/10/2010 4:40 PM CDT) Comment Manual Diff Done [facility] Band % Manual 8 % [facility] Neutrophils % Manual 71(H) 20 - 70 % [facility] Lymphocytes % Manual 9(L) 16 - 70 % [facility] Monocytes % Manual 12 3 - 13 % [facility] RBC Morphology Normal [facility] BLOOD SPECIMEN / Unknown 01/10/2010 4:40 PM CDT 01/10/2010 5:04 PM CDT Jose Flores MD LAB - HEMATOLOGY O RDERABLES Performing Organization Address [facility] Phone Number [facility] [address] [place] [address] * CBC W AUTO DIFFERENTIAL (01/10/2010 4:40 PM CDT) WBC 11.26 5.0 - 14.5 K/cumm [facility] RBC 4.46 3.90 - 5.30 mill/cumm [facility] Hemoglobin 12.3 11.5 - 13.5 gm/dl [facility] Hematocrit 35.4 34.0 - 40.0 % [facility] MCV 79.4 75.0 - 87.0 cu microns [facility] MCH 27.6 24.0 - 30.0 uug [facility] MCHC 34.7 31.0 - 37.0 % [facility] RDW 12.8 % [facility] MPV 11.3 fl [facility] Platelet Count 294 100 - 400 K/cumm [facility] Comment Manual Diff Done [facility] BLOOD SPECIMEN / Unknown 01/10/2010 4:40 PM CDT 01/10/2010 4:50 PM CDT Ashvin Varela MD LAB - HEMATOLOGY ORD ERABLES Performing Organization Address [facility] Co de Phone Number [facility] [address] [place] [address] * (ABNORMAL) COMPREHENSIVE METABOLIC PANEL (01/10/2010 4:40 PM CDT) Sodium 136(L) 137 - 145 mmol/L [facility] Potassium 5.2(H) 3.5 - 5.1 mmol/L [facility] Chloride 102 98 - 107 mmol/L [facility] CO2 20.3 18 - 27 mmol/L [facility] Glucose 95 70 - 106 mg/dl [facility] BUN 12.8 7 - 18 mg/dl [facility] Calcium 9.3 8.8 - 10.1 mg/dl [facility] Bilirubin Total 1.5(H) 0.6 - 1.4 mg/dl [facility] Protein Total 8.4(H) 5.9 - 7.8 gm/dl [facility] Albumin 5.0 3.5 - 5.2 gm/dl [facility] ALT 7(L) 10 - 25 Units/L [facility] AST 67(H) 15 - 50 Units/L [facility] Alkaline Phosphatase 238 150 - 380 Units/L [facility] Creatinine 0.42 0.03 - 0.59 mg/dl [facility] Specimen Type/Condition mod hemolysis [facility] BLOOD SPECIMEN / Unknown 01/10/2010 4:40 PM CDT 01/10/2010 4:50 PM CDT Ashvin Varela MD LAB - CHEMISTRY ORDE LORENZO Performing Organization Address City/[facility]/ZIP Co de Phone Number [facility] [address] [place] [address] * (ABNORMAL) LIPASE BLOOD (01/10/2010 4:40 PM CDT) Lipase 22(L) 23 - 300 Units/L [facility] Specimen Type/Conditio n mod hemolysis [facility] BLOOD SPECIMEN / Unknown 01/10/2010 4:40 PM CDT 01/10/2010 4:50 PM CDT Ashvin Varela MD LAB - CHEMISTRY ORDJatin VENTURA Performing Organization Address [facility]/ZIP Co de Phone Number [facility] [address] [place] [address] * AMYLASE BLOOD (01/10/2010 4:40 PM CDT) Amylase 33 30 - 100 Units/L [facility] Specimen Type/Conditio n mod hemolysis [facility] BLOOD SPECIMEN / Unknown 01/10/2010 4:40 PM CDT 01/10/2010 4:50 PM CDT Ashvin Varela MD LAB - CHEMISTRY JOBY VENTURA [facility] [address] [place] [address] * XR CHEST PA AND LATERAL (01/10/2010 [...] Ashvin Varela MD DIAGNOSTIC IMAGING O RDERABLES Care Teams Loom Fixer Relationship Specialty Start Date End Date Seun Phillips MD PCP - General Pediatrics 08/06/13
--- OUTSIDE RECORDS SUMMARY | 2024-04-20 04:23 | XMS_ITS | Encounter Summary ---
Author Organization [facility] Address [address] [place] [address] Care Team Providers Care Counter Weigher Name Role Phone Seun Phillips MD Primary Care Provider [phone] Reason for Visit * Reason Onset Date Comments Referral 03/29/2020 Encounter Details Date Type Department Care Team (Late st Contact Info) Description 03/29/2020 Telephone [facility] [place] [address] Bekah Nunez, environmental engineering aide Social History Tobacco Use Types Packs/Day Years Used Date Smoking Tobacco: Never Assessed Sex and Gender Information Value Date Recorded Sex Assigned at Not on file Gender Identity Not on file Sexual Orientation Not on file documented as of this encounter Plan of Treatment Not on file documented as of this encounter Visit Diagnoses Not on filedocumented in this encounter Care Teams Counter Weigher Relationship Specialty Start Date End Date Seun Phillips MD PCP - General Pediatrics 08/06/13 documented as of this encounter
--- OUTSIDE RECORDS SUMMARY | 2024-04-20 04:23 | XMS_ITS | Encounter Summary ---
Author Organization [facility] Address [address] [place] [address] Care Team Providers Care Forming Yardage Control Operator Name Role Phone Héctor Ingram MD Primary Care Provider Reason for Visit * Reason Comments Fever diagnosed with Influ robel A last evening. c/o dizziness. taking some fluids, urinate x 1 today.parents concerned with fever Encounter Details Date Type Department Care Team (Late st Contact Info) Description 03/11/2012 8:06 AM PLANT OPERATIONS COORDINATOR - 03/11/2012 9:10 AM PLANT OPERATIONS COORDINATOR Emergency ER at [address] [address] Edd Pereyra MD [address] [place] [id number] Influenza A Discharge Disposition: Home or Self Care Social History Tobacco Use Types Packs/Day Years Used Date Smoking Tobacco: Never Assessed Sex and Gender Information Value Date Recorded Sex Assigned at Not on file Gender Identity Not on file Sexual Orientation Not on file documented as of this encounter Last Filed Vital Signs Vital Sign Reading Time Taken Comments Blood Pressure 114/58 03/11/2012 8:10 AM PLANT OPERATIONS COORDINATOR Pulse 92 03/11/2012 8:10 AM PLANT OPERATIONS COORDINATOR Temperature 37.1 ??C (98.8 ??F) 03/11/2012 8:25 AM CS T Respiratory Rate 22 03/11/2012 8:10 AM PLANT OPERATIONS COORDINATOR Oxygen Saturation - - Inhaled Oxygen Concentration - - Weight 44.9 kg (98 lb 15.8 oz) 03/11/2012 8:10 A M PLANT OPERATIONS COORDINATOR Height - - Body Mass Index - - documented in this encounter Discharge Instructions * Discharge Instructions* Latoya Larsen DO - 03/11/2012 8:33 AM PLANT OPERATIONS COORDINATOR Influenza, Child Influenza ('the flu') is a viral infection of the respiratory tract. It occurs in outbreaks every year, usually in the cold months. CAUSES Influenza is caused by a virus. There are three types of influenza: A, B and C. It is very contagious. This means it spreads easily to others. Influenza spreads in tiny droplets caused by coughing and sneezing. It usually spreads from person to person. People can orange picking supervisor influenza by touching something that was recently contaminated with the virus and then touching their mouth or nose. This virus is contagious one day before symptoms appear. It is also contagious for up to five days after becoming ill. The time it takes to get sick after exposure to the infection (incubation period) can be as short as 2 to 3 days. SYMPTOMS Symptoms can vary depending on the age of the child and the type of influenza. Your child may have any of the following: ?? Fever. ?? Chills. ?? Body aches. ?? Headaches. ?? Sore throat. ?? Runny and/or congested nose. ?? Cough. ?? Poor appetite. ?? Weakness, feeling tired. ?? Dizziness. ?? Nausea, vomiting. The fever, chills, fatigue and aches can last for up to 4 to 5 days. The cough may last for a week or two. Children may feel weak or tire easily for a couple of weeks. DIAGNOSIS Diagnosis of influenza is often made based on the history and physical exam. Testing can be done ifthe diagnosis is not certain. TREATMENT Since influenza is a virus, antibiotics are not helpful. Your child's caregiver may prescribe antiviral medicines to shorten the illness and lessen the severity. Your child's caregiver may also recommend influenza vaccination and/or antiviral medicines for other family members in order to prevent the spread of influenza to them. Annual flu shots are the best way to avoid getting influenza. HOME CARE INSTRUCTIONS ?? Only take [id number] or prescription medicines for pain, discomfort, or fever as directed by your caregiver. ?? DO NOT GIVE ASPIRIN TO CHILDREN UNDER 18 YEARS OF AGE WITH INFLUENZA. This could lead to brain and liver damage (Regino's syndrome). Read the label on [id number] medicines. ?? Use a cool mist humidifier to increase air moisture if you live in a dry climate. Do not use hotsteam. ?? Have your child rest until the temperature is normal. This usually takes 3 to 4 days. ?? Drink enough water and fluids to keep your urine clear or pale yellow. ?? Use cough syrups if recommended by your child's caregiver. Always check before giving cough and cold medicines to children under the age of 4 years. ?? Clean mucus from young children's noses, if needed, by gentle suction with a bulb syringe. ?? Wash your and your child's hands often to prevent the spread of germs. This is especially important after blowing the nose and before touching food. Be sure your child covers their mouth when theycough or sneeze. ?? Keep your child home from day care or school until the fever has been gone for 1 day. SEEK MEDICAL CARE IF: ?? Your child has ear pain (in young children and babies this may cause crying and waking at night). ?? Your child has chest pain. ?? Your child has a cough that is worsening or causing vomiting. ?? Your child has an oral temperature above 102?? F (38.9?? C). ?? Your baby is older than 3 months with a rectal temperature of 100.5?? F (38.1?? C) or higher formore than 1 day. SEEK IMMEDIATE MEDICAL CARE IF: ?? Your child has trouble breathing or fast breathing. ?? Your child shows signs of dehydration: ?? Confusion or decreased alertness. ?? Tiredness and sluggishness (lethargy). ?? Rapid breathing or pulse. ?? Weakness or limpness. ?? Sunken eyes. ?? Pale skin. ?? Dry mouth. ?? No tears when crying. ?? No urine for 8 hours. ?? Your child develops confusion or unusual sleepiness. ?? Your child has convulsions (seizures). ?? Your child has severe neck pain or stiffness. ?? Your child has a severe headache. ?? Your child has severe muscle pain or swelling. ?? Your child has an oral temperature above 102?? F (38.9?? C), not controlled by medicine. ?? Your baby is older than 3 months with a rectal temperature of 102?? F (38.9?? C) or higher. ?? Your baby is 3 months old or younger with a rectal temperature of 100.4?? F (38?? C) or higher. Document Released: 03/26/2006 Document Revised: 12/06/2011 Document Reviewed: 12/30/2009 ExitCare?? Patient Information ??2011 [employer]. T OPERATIONS COORDINATOR * Discharge Instructions* Document, Scanned - 04/08/2012 6:48 PM PLANT OPERATIONS COORDINATOR T OPERATIONS COORDINATOR documented in this encounter Medications at Time of Discharge Medication Sig Dispensed Refills Start Date End Date ibuprofen (ADVIL; MOTRIN) 100 MG/5ML SUSP suspension Take 300 mg by mouth every 6 hours as needed. ondansetron (ZOFRAN) 4 MG tablet Take 1 Tab by mouth every 6 hours as needed for Nausea/Vomiting. 4 Tab 0 01/10/2010 documented as of this encounter ED Notes * Ilene Marroquin RN - 03/11/2012 9:10 AM CST Alert on discharge. T OPERATIONS COORDINATOR * Ilene Marroquin RN - 03/11/2012 8:34 AM CST Nutrition offered to patient. Given Juice. T OPERATIONS COORDINATOR * Ilene Marroquin RN - 03/11/2012 8:34 AM CST Patient/Family updated as to patient's status. T OPERATIONS COORDINATOR * Ilene Marroquin RN - 03/11/2012 8:26 AM CST Face flushed awake and watching TV. T OPERATIONS COORDINATOR * Edd Pereyra MD - 03/11/2012 8:24 AM CST Provider contact with the patient: 03/11/2012 08:24 Jovanny Zaman [id number] [facility] EMERGENCY DEPT History Chief Complaint Patient presents with ??? Fever diagnosed with Influenza A last evening. c/o dizziness. taking some fluids, urinate x 1 today.parents concerned with fever I have read the resident/EXHIBITOR SALES history. Unless appended by me below, I agree with findings as documented. HPI Comments: 6 yo with influenza A yesterday at [place], fever to 103; illness began 3 days ago, swab positive yesterday, given prescription for tamiflu but family did not fill... Eating and drinking well. Still with mild cough. Review of Systems Review of Systems All other systems reviewed and are negative. BP 114/58 Pulse 92 Temp 99.8 ??F Resp 22 Wt 44.9 kg (98 lb 15.8 oz) Physical Exam I have reviewed the resident/EXHIBITOR SALES physical exam. Unless appended by me below, I agree with the PE as documented. Physical Exam Constitutional: He is active. No distress. HENT: Head: No signs of injury. Nose: No nasal discharge. Mouth/Throat: Mucous membranes are moist. Eyes: Conjunctivae are normal. Neck: Normal range of motion. Neck supple. Cardiovascular: Normal rate, regular rhythm, S1 normal and S2 normal. Pulses are palpable. No murmur heard. Pulmonary/Chest: Effort normal and breath sounds normal. No respiratory distress. Air movement is not decreased. He has no wheezes. He has no rhonchi. He exhibits no retraction. Abdominal: Soft. Bowel sounds are normal. He exhibits no distension and no mass. There is no hepatosplenomegaly. There is no tenderness. There is no rebound and no guarding. No hernia. Musculoskeletal: Normal range of motion. Normal Neurological: He is alert. Normal Skin: Skin is warm. Capillary refill takes less than 3 seconds. No rash noted. He is not diaphoretic. No pallor. Procedures Procedures Progress Notes ED Course Medical Decision Making I have personally seen and examined this patient. I have fully participated in the care of this patient. I have reviewed all pertinent clinical information available to me during this encounter, including history, physical exam and plan. I have reviewed nursing notes, available labs and radiographic studies. Ass: 1) Influenza A: Supportive care with ibuprofen, po fluids......too late for benefit of tamiflu. Clinical Impression Final diagnoses: Influenza A T OPERATIONS COORDINATOR * Latoya Larsen DO - 03/11/2012 8:20 AM CST Images from the original note were not included. EMERGENCY DEPARTMENT 03/11/[address] Héctor Ingram We had the pleasure of caring for your patient, Jovanny Zaman in our emergency department on 03/11/2012. A note from the provider(s) who cared for your patient is attached. Should you wish to access any laboratory results, please call . Should you wish to access any radiology results, please call , option 3. In addition, you can access patient information 24 hours a day, from any computer, through [employer], the online version of our electronic medical record. If you would like to use this service, please call Melonie Zelaya, Connectivity Coordinator, at . We appreciate the opportunity to care for your patients. If you would like additional information, please call the emergency department directly at . Sincerely, Latoya Larsen, Division of Emergency Medicine [facility], [place] [facility] [place] EMERGENCY DEPARTMENT Provider contact with the patient: 03/11/2012 08:20 Jovanny Zaman [id number] [facility] EMERGENCY DEPT History Chief Complaint Patient presents with ??? Fever diagnosed with Influenza A last evening. c/o dizziness. taking some fluids, urinate x 1 today.parents concerned with fever HPI Comments: Yves is an 6 yo overweight but otherwise healthy male who was diagnosed with Influenza A at [facility] yesterday. He started with fever and cough on Sunday, worsened over the weekend, and parents took him to the [facility] ED where he was given a flu swab, which was positive for influenza A. He was given an rx for Tamiflu, which the parents did not fill yet, and discharged. Parents noted that he had a fever of 103 this morning, and brought him to the ED. No past medical history on file. No past surgical history on file. History Social History ??? Marital Status: Single Spouse Name: N/A Number of Children: N/A ??? Years of Education: N/A Occupational History ??? Not on file. Social History Main Topics ??? Smoking status: Not on file ??? Smokeless tobacco: Not on file ??? Alcohol Use: Not on file ??? Drug Use: Not on file ??? Sexually Active: Not on file Other Topics Concern ??? Not on file Social History Narrative ??? No narrative on file Medications Current Outpatient Prescriptions Medication Sig Dispense Refill ??? ibuprofen (ADVIL; MOTRIN) 100 MG/5ML SUSP suspension Take 300 mg by mouth every 6 hours as needed. ??? ondansetron (ZOFRAN) 4 MG tablet Take 1 Tab by mouth every 6 hours as needed for Nausea/Vomiting. 4 Tab 0 Review of Systems Review of Systems Constitutional: Positive for fever, chills, diaphoresis, activity change and fatigue. HENT: Positive for congestion. Negative for rhinorrhea, sneezing and postnasal drip. Respiratory: Positive for cough. Negative for wheezing. Gastrointestinal: Negative for vomiting and diarrhea. Neurological: Positive for light-headedness. BP 114/58 Pulse 92 Temp 99.8 ??F Resp 22 Wt 44.9 kg (98 lb 15.8 oz) Physical Exam Physical Exam Constitutional: He appears well-developed and well-nourished. He appears ill. No distress. HENT: Nose: No nasal discharge. Mouth/Throat: Mucous membranes are moist. Oropharynx is clear. Pharynx is normal. Cheeks flushed Eyes: Conjunctivae are normal. Pupils are equal, round, and reactive to light. Neck: Normal range of motion. Neck supple. Cardiovascular: Normal rate, regular rhythm, S1 normal and S2 normal. No murmur heard. Pulmonary/Chest: Effort normal and breath sounds normal. There is normal air entry. No respiratory distress. Abdominal: Full and soft. Bowel sounds are normal. There is no hepatosplenomegaly. There is no tenderness. Neurological: He is alert. Skin: Skin is warm. Capillary refill takes less than 3 seconds. He is diaphoretic. Procedures Procedures Lab/SPO2 Interpretation Progress Notes ED Course Medical Decision Making Clinical Impression Final diagnoses: Influenza A --dicussed anticipated course of illness, signs of dehydration --encouraged fluids, rest --provided school letter; not to return to class until afebrile for 24 hours --instructed parents to return to ED if Jovanny becomes dehydrated, or has prolonged high fever unresponsive to Tylenonl/ibuprofen T OPERATIONS COORDINATOR documented in this encounter Miscellaneous Notes * Miscellaneous Scans - Document, Scanned - 04/21/2012 3:05 PM CST T OPERATIONS COORDINATOR documented in this encounter Plan of Treatment Not on file documented as of this encounter Visit Diagnoses Diagnosis Influenza A Influenza with other respiratory manifestations documented in this encounter Care Teams Forming Yardage Control Operator Relationship Specialty Start Date End Date Héctor Ingram MD [address] [facility] [address] [place] [address] PCP - General Pediatrics 03/11/12 08/05/13 documented as of this encounter
--- OUTSIDE RECORDS SUMMARY | 2024-04-20 04:23 | XMS_ITS | Encounter Summary ---
Author Organization [facility] Address [address] [facility] [place] [address] Care Team Providers Care Brim Shaper Name Role Phone Seun Orta MD Primary Care Provider Encounter Details Date Type Department Care Team (Late st Contact Info) Description 01/10/2010 4:15 PM CDT - 01/10/2010 4:16 PM CDT Hospital Encounter Emergency Med icine Discharge Disposition: Home or Self Care Social History Tobacco Use Types Packs/Day Years Used Date Smoking Tobacco: Never Assessed Sex and Gender Information Value Date Recorded Sex Assigned at Not on file Gender Identity Not on file Sexual Orientation Not on file documented as of this encounter Medications at Time of Discharge Medication Sig Dispensed Refills Start Date End Date ibuprofen (ADVIL; MOTRIN) 100 MG/5ML SUSP suspension Take 300 mg by mouth every 6 hours as needed. documented as of this encounter Miscellaneous Notes * Miscellaneous Scans - Document, Scanned - 02/19/2010 7:18 AM SOLAR INSTALLER * Miscellaneous Scans - Document, Scanned - 02/18/2010 8:36 PM SOLAR INSTALLER documented in this encounter Plan of Treatment Not on file documented as of this encounter Visit Diagnoses Not on filedocumented in this encounter Care Teams Brim Shaper Relationship Specialty Start Date End Date Seun Orta MD [address] [place] [address] PCP - General 01/10/10 03/10/12 documented as of this encounter
--- OUTSIDE RECORDS SUMMARY | 2024-04-20 04:23 | XMS_ITS | Encounter Summary ---
Author Organization [facility] Address [address] [facility] [place] [address] Care Team Providers Care Hand Turner Name Role Phone Seun Phillips MD Primary Care Provider [phone] Reason for Visit * Reason Onset Date Comments Referral 04/14/2020 Encounter Details Date Type Department Care Team (Late st Contact Info) Description 04/14/2020 Telephone [facility] [facility] [place] [address] Bekah Nunez, supervisor accounting clerks Social History Tobacco Use Types Packs/Day Years Used Date Smoking Tobacco: Never Assessed Sex and Gender Information Value Date Recorded Sex Assigned at Not on file Gender Identity Not on file Sexual Orientation Not on file documented as of this encounter Plan of Treatment Not on file documented as of this encounter Visit Diagnoses Not on filedocumented in this encounter Care Teams Hand Turner Relationship Specialty Start Date End Date Seun Phillips MD PCP - General Pediatrics 08/06/13 documented as of this encounter
--- OUTSIDE RECORDS SUMMARY | 2024-04-20 05:03 | XMS_ITS | Encounter Summary ---
Author Organization [facility] Address [address] [place] [address] Care Team Providers Care Proofsheet Corrector Name Role Phone Seun Phillips MD Primary Care Provider [phone] Reason for Visit * Reason Onset Date Comments Referral 04/08/2020 Encounter Details Date Type Department Care Team (Late st Contact Info) Description 04/08/2020 Telephone [facility] [place] [address] Bekah Nunez, line out worker Social History Tobacco Use Types Packs/Day Years Used Date Smoking Tobacco: Never Assessed Sex and Gender Information Value Date Recorded Sex Assigned at Not on file Gender Identity Not on file Sexual Orientation Not on file documented as of this encounter Plan of Treatment Not on file documented as of this encounter Visit Diagnoses Not on filedocumented in this encounter Care Teams Proofsheet Corrector Relationship Specialty Start Date End Date Seun Phillips MD PCP - General Pediatrics 08/06/13 documented as of this encounter
--- OUTSIDE RECORDS SUMMARY | 2024-04-20 05:03 | XMS_ITS | Encounter Summary ---
Author Organization [facility] Address [address] [place] [address] Care Team Providers Care Diffusion Furnace Operator Name Role Phone Seun Phillips MD Primary Care Provider [phone] Reason for Visit * Reason Onset Date Comments Referral 03/29/2020 Encounter Details Date Type Department Care Team (Late st Contact Info) Description 03/29/2020 Telephone [facility] [facility] [place] [address] Bekah Nunez, drafter automotive design Social History Tobacco Use Types Packs/Day Years Used Date Smoking Tobacco: Never Assessed Sex and Gender Information Value Date Recorded Sex Assigned at Not on file Gender Identity Not on file Sexual Orientation Not on file documented as of this encounter Plan of Treatment Not on file documented as of this encounter Visit Diagnoses Not on filedocumented in this encounter Care Teams Diffusion Furnace Operator Relationship Specialty Start Date End Date Seun Phillips MD PCP - General Pediatrics 08/06/13 documented as of this encounter
--- OUTSIDE RECORDS SUMMARY | 2024-04-20 05:03 | XMS_ITS | Referral Summary ---
Author Organization [facility] Address [address] [facility] [place] [address] Care Team Providers Care Telecommunications Administrator Name Role Phone Seun Phillips MD Primary Care Provider [phone] Source Comments [facility],non-owned Affiliates and Associated Physician Practices is amultiple site organization consisting of ambulatory clinics and hospital sitesin [place], [place], [place] and [place]. This disclosure is being madepursuant to the Care Everywhere program and may not contain all information available regarding this patient. Last updated 17.[facility] Allergies Active Allergy Reactions Criticality Noted Date [...] Comments Blood Pressure 114/58 03/11/2012 8:10 AM COIL WINDER STRAP Pulse 92 03/11/2012 8:10 AM COIL WINDER STRAP Temperature 37.1 ??C (98.8 ??F) 03/11/2012 8:25 AM CS T Respiratory Rate 22 03/11/2012 8:10 AM COIL WINDER STRAP Oxygen Saturation 100% 01/10/2010 3:31 PM CDT Inhaled Oxygen Concentration - - Weight 44.9 kg (98 lb 15.8 oz) 03/11/2012 8:10 A M COIL WINDER STRAP Height - - Body Mass Index - - Plan of Treatment Not on file Care Teams Telecommunications Administrator Relationship Specialty Start Date End Date Seun Phillips MD PCP - General Pediatrics 08/06/13
--- OUTSIDE RECORDS SUMMARY | 2024-04-20 05:03 | XMS_ITS | Encounter Summary ---
Author Organization [facility] Address [address] [facility] [place] [address] Care Team Providers Care Senior Clinical Study Manager Name Role Phone Seun Orta MD Primary [...] - Document, Scanned - 02/19/2010 7:18 AM REEL WINDER * Miscellaneous Scans - Document, Scanned - 02/18/2010 8:36 PM REEL WINDER documented in this encounter Plan of Treatment Not on file documented as of this encounter Visit Diagnoses Not on filedocumented in this encounter Care Teams Senior Clinical Study Manager Relationship Specialty Start Date End Date Seun Orta MD [address] [place] [address] PCP - General 01/10/10 03/10/12 documented as of this encounter
--- OUTSIDE RECORDS SUMMARY | 2024-04-20 05:03 | XMS_ITS | Patient Health Summary ---
Author Organization [facility] Address [address] [place] [address] Care Team Providers Care Tailor Apprentice Name Role Phone Seun Phillips MD Primary Care Provider [phone] Note from [facility],non-owned Affiliates and Associated Physician Practices is amultiple site organization consisting of ambulatory clinics and hospital sitesin [place], [place], [place] and [place]. This disclosure is being madepursuant to the Care Everywhere program and may not contain all information available regarding this patient. Last updated 17.[facility] Allergies * Omnicef(Swelling) Medications * Be aware [...] Comments Blood Pressure 114/58 03/11/2012 8:10 AM PRINTER SLOTTER HELPER Pulse 92 03/11/2012 8:10 AM PRINTER SLOTTER HELPER Temperature 37.1 ??C (98.8 ??F) 03/11/2012 8:25 AM CS T Respiratory Rate 22 03/11/2012 8:10 AM PRINTER SLOTTER HELPER Oxygen Saturation 100% 01/10/2010 3:31 PM CDT Inhaled Oxygen Concentration - - Weight 44.9 kg (98 lb 15.8 oz) 03/11/2012 8:10 A M PRINTER SLOTTER HELPER Height - - Body Mass Index - [...] CULTURE BLOOD (01/10/2010 4:40 PM CDT) Report [facility] Comment: Final - BOTTLE(S) RECEIVED- AEROBIC/ANAEROBIC BOTTLES CULTURE No growth PERIPHERAL BLOOD / Unknown 01/10/2010 4:40 PM CDT 01/10/2010 4:51 PM CDT Ashvin Varela MD LAB - MICROBIOLOGY O RDERABLES Performing Organization Address [facility] de Phone Number [facility] [address] [place] [address] * (ABNORMAL) DIFFERENTIAL MANUAL (01/10/2010 4:40 PM CDT) Comment Manual Diff Done [facility] Band % Manual 8 % [facility] Neutrophils % Manual 71(H) 20 - 70 % [facility] Lymphocytes % Manual 9(L) 16 - 70 % [facility] Monocytes % Manual 12 3 - 13 % [facility] RBC Morphology Normal [facility] BLOOD SPECIMEN / Unknown 01/10/2010 4:40 PM CDT 01/10/2010 5:04 PM CDT Jose Flores MD LAB - HEMATOLOGY O RDERABLES Performing Organization Address [facility] Phone Number [facility] [address] [place] [address] * CBC W AUTO DIFFERENTIAL (01/10/2010 4:40 PM CDT) WBC 11.26 5.0 - 14.5 K/cumm [facility] RBC 4.46 3.90 - 5.30 mill/cumm [facility] Hemoglobin 12.3 11.5 - 13.5 gm/dl [facility] Hematocrit 35.4 34.0 - 40.0 % [facility] MCV 79.4 75.0 - 87.0 cu microns [facility] MCH 27.6 24.0 - 30.0 uug [facility] MCHC 34.7 31.0 - 37.0 % [facility] RDW 12.8 % [facility] MPV 11.3 fl [facility] Platelet Count 294 100 - 400 K/cumm [facility] Comment Manual Diff Done [facility] BLOOD SPECIMEN / Unknown 01/10/2010 4:40 PM CDT 01/10/2010 4:50 PM CDT Ashvin Varela MD LAB - HEMATOLOGY ORD ERABLES Performing Organization Address [facility] Co de Phone Number [facility] [address] [place] [address] * (ABNORMAL) COMPREHENSIVE METABOLIC PANEL (01/10/2010 4:40 PM CDT) Sodium 136(L) 137 - 145 mmol/L [facility] Potassium 5.2(H) 3.5 - 5.1 mmol/L [facility] Chloride 102 98 - 107 mmol/L [facility] CO2 20.3 18 - 27 mmol/L [facility] Glucose 95 70 - 106 mg/dl [facility] BUN 12.8 7 - 18 mg/dl [facility] Calcium 9.3 8.8 - 10.1 mg/dl [facility] Bilirubin Total 1.5(H) 0.6 - 1.4 mg/dl [facility] Protein Total 8.4(H) 5.9 - 7.8 gm/dl [facility] Albumin 5.0 3.5 - 5.2 gm/dl [facility] ALT 7(L) 10 - 25 Units/L [facility] AST 67(H) 15 - 50 Units/L [facility] Alkaline Phosphatase 238 150 - 380 Units/L [facility] Creatinine 0.42 0.03 - 0.59 mg/dl [facility] Specimen Type/Condition mod hemolysis [facility] BLOOD SPECIMEN / Unknown 01/10/2010 4:40 PM CDT 01/10/2010 4:50 PM CDT Ashvin Varela MD LAB - CHEMISTRY ORDE LORENZO Performing Organization Address City/[facility]/ZIP Co de Phone Number [facility] [address] [place] [address] * (ABNORMAL) LIPASE BLOOD (01/10/2010 4:40 PM CDT) Lipase 22(L) 23 - 300 Units/L [facility] Specimen Type/Conditio n mod hemolysis [facility] BLOOD SPECIMEN / Unknown 01/10/2010 4:40 PM CDT 01/10/2010 4:50 PM CDT Ashvin Varela MD LAB - CHEMISTRY ORDJatin VENTURA Performing Organization Address [facility]/ZIP Co de Phone Number [facility] [address] [place] [address] * AMYLASE BLOOD (01/10/2010 4:40 PM CDT) Amylase 33 30 - 100 Units/L [facility] Specimen Type/Conditio n mod hemolysis [facility] BLOOD SPECIMEN / Unknown 01/10/2010 4:40 PM CDT 01/10/2010 4:50 PM CDT Ashvin Varela MD LAB - CHEMISTRY JOBY VENTURA [facility] [address] [facility] [place] [address] * XR CHEST PA AND LATERAL (01/10/2010 [...] MD DIAGNOSTIC IMAGING O RDERABLES Care Teams Tailor Apprentice Relationship Specialty Start Date End Date Seun Phillips MD PCP - General Pediatrics 08/06/13
--- OUTSIDE RECORDS SUMMARY | 2024-04-20 05:03 | XMS_ITS | Clinical Summary ---
Author Organization [facility] [employer] Address [address] [place] [address] Care Team Providers Care Chemist Intern Name Role Phone Seun Phillips MD Primary Care Provider [phone] Source Comments [facility] [employer],non-owned Affiliates and Associated Physician Practices is amultiple site organization consisting of ambulatory clinics and hospital sitesin [place], [place], [place] and [place]. This disclosure is being madepursuant to the Care Everywhere program and may not contain all information available regarding this patient. Last updated 17.[facility] [employer] Allergies Active Allergy Reactions Criticality Noted Date [...] Comments Blood Pressure 114/58 03/11/2012 8:10 AM COTTON TIER Pulse 92 03/11/2012 8:10 AM COTTON TIER Temperature 37.1 ??C (98.8 ??F) 03/11/2012 8:25 AM CS T Respiratory Rate 22 03/11/2012 8:10 AM COTTON TIER Oxygen Saturation 100% 01/10/2010 3:31 PM CDT Inhaled Oxygen Concentration - - Weight 44.9 kg (98 lb 15.8 oz) 03/11/2012 8:10 A M COTTON TIER Height - - Body Mass Index - [...] age to complete this topic Care Teams Chemist Intern Relationship Specialty Start Date End Date Seun Phillips MD PCP - General Pediatrics 08/06/13
--- OUTSIDE RECORDS SUMMARY | 2024-04-20 05:03 | XMS_ITS | Encounter Summary ---
Author Organization [facility] Address [address] [place] [address] Care Team Providers Care Stereotyper Name Role Phone Héctor Ingram MD Primary Care Provider [phone] Reason for Visit * Reason Comments Fever diagnosed with Influ robel A last evening. c/o dizziness. taking some fluids, urinate x 1 today.parents concerned with fever Encounter Details Date Type Department Care Team (Late st Contact Info) Description 03/11/2012 8:06 AM ROUGHER OPERATOR - 03/11/2012 9:10 AM ROUGHER OPERATOR Emergency ER at [address] [address] Edd Pereyra MD [address] [place] [id number] Influenza A Discharge Disposition: Home or Self [...] Comments Blood Pressure 114/58 03/11/2012 8:10 AM ROUGHER OPERATOR Pulse 92 03/11/2012 8:10 AM ROUGHER OPERATOR Temperature 37.1 ??C (98.8 ??F) 03/11/2012 8:25 AM CS T Respiratory Rate 22 03/11/2012 8:10 AM ROUGHER OPERATOR Oxygen Saturation - - Inhaled Oxygen Concentration - - Weight 44.9 kg (98 lb 15.8 oz) 03/11/2012 8:10 A M ROUGHER OPERATOR Height - - Body Mass Index - - documented in this encounter Discharge Instructions * Discharge Instructions* Latoya Larsen DO - 03/11/2012 8:33 AM ROUGHER OPERATOR Influenza, Child Influenza ('the flu') is a [...] spreads from person to person. People can curing pickling packer influenza by touching something that was recently [...] influenza. HOME CARE INSTRUCTIONS ?? Only take akvq-gee-icdhfkb or prescription medicines for pain, discomfort, or fever as directed by your caregiver. ?? DO NOT GIVE ASPIRIN TO CHILDREN UNDER 18 YEARS OF AGE WITH INFLUENZA. This could lead to brain and liver damage (Regino's syndrome). Read the label on hwzu-zie-mwgdwgh medicines. ?? Use a cool mist humidifier [...] Document Reviewed: 12/30/2009 ExitCare?? Patient Information ??2011 [employer]. HER OPERATOR * Discharge Instructions* Document, Scanned - 04/08/2012 6:48 PM ROUGHER OPERATOR HER OPERATOR documented in this encounter Medications at Time [...] 03/11/2012 9:10 AM CST Alert on discharge. HER OPERATOR * Ilene Marroquin RN - 03/11/2012 8:34 AM CST Nutrition offered to patient. Given Juice. HER OPERATOR * Ilene Marroquin RN - 03/11/2012 8:34 AM CST Patient/Family updated as to patient's status. HER OPERATOR * Ilene Marroquin RN - 03/11/2012 8:26 AM CST Face flushed awake and watching TV. HER OPERATOR * Edd Pereyra MD - 03/11/2012 8:24 AM CST Provider contact with the patient: 03/11/2012 08:24 Jovanny Zaman [id number] [facility] EM[facility]ENCY [facility]PT History Chief Complaint Patient presents with ??? Fever diagnosed with Influenza A last evening. c/o dizziness. taking some fluids, urinate x 1 today.parents concerned with fever I have read the resident/PV DESIGN ENGINEER history. Unless appended by me below, I agree with findings as documented. HPI Comments: 6 yo with influenza A yesterday at [place], fever to 103; illness began 3 days ago, swab positive yesterday, given prescription for tamiflu but family did not fill... Eating and drinking well. Still with mild cough. Review of Systems Review of Systems All other systems reviewed and are negative. BP 114/58 Pulse 92 Temp 99.8 ??F Resp 22 Wt 44.9 kg (98 lb 15.8 oz) Physical Exam I have reviewed the resident/PV DESIGN ENGINEER physical exam. Unless appended by me below, [...] tamiflu. Clinical Impression Final diagnoses: Influenza A HER OPERATOR * Latoya Larsen DO - 03/11/2012 8:20 [...] hours a day, from any computer, through [employer], the online version of our electronic medical record. If you would like to use this service, please call Melonie Zelaya, Connectivity Coordinator, at . We appreciate the opportunity to care for your patients. If you would like additional information, please call the emergency department directly at . Sincerely, Latoya Larsen, Division of Emergency Medicine [facility], [place] [facility] [place] I DESIGNATED EMERGENCY DEPARTMENT Provider contact with the patient: 03/11/2012 08:20 Jovanny Zaman [id number] [facility] History Chief Complaint Patient presents with ??? Fever diagnosed with Influenza A last evening. c/o dizziness. taking some fluids, urinate x 1 today.parents concerned with fever HPI Comments: Yves is an 6 yo overweight but otherwise healthy male who was diagnosed with Influenza A at [facility] yesterday. He started with fever and cough on Sunday, worsened over the weekend, and parents took him to the [facility] ED where he was given a flu [...] has prolonged high fever unresponsive to Tylenonl/ibuprofen HER OPERATOR documented in this encounter Miscellaneous Notes * Miscellaneous Scans - Document, Scanned - 04/21/2012 3:05 PM CST HER OPERATOR documented in this encounter Plan of Treatment Not on file documented as of this encounter Visit Diagnoses Diagnosis Influenza A Influenza with other respiratory manifestations documented in this encounter Care Teams Stereotyper Relationship Specialty Start Date End Date Héctor Ingram MD [address] [place] [address] PCP - General Pediatrics 03/11/12 08/05/13 documented as of this encounter
--- OUTSIDE RECORDS SUMMARY | 2024-04-20 05:03 | XMS_ITS | Encounter Summary ---
Author Organization [facility] Address [address] [place] [address] Care Team Providers Care Stage Manager Name Role Phone Seun Phillips MD Primary Care Provider [phone] Reason for Visit * Reason Onset Date Comments Referral 04/14/2020 Encounter Details Date Type Department Care Team (Late st Contact Info) Description 04/14/2020 Telephone [facility] [place] [address] Bekah Nunez, traffic operations manager Social History Tobacco Use Types Packs/Day Years Used Date Smoking Tobacco: Never Assessed Sex and Gender Information Value Date Recorded Sex Assigned at Not on file Gender Identity Not on file Sexual Orientation Not on file documented as of this encounter Plan of Treatment Not on file documented as of this encounter Visit Diagnoses Not on filedocumented in this encounter Care Teams Stage Manager Relationship Specialty Start Date End Date Seun Phillips MD PCP - General Pediatrics 08/06/13 documented as of this encounter
--- OUTSIDE RECORDS SUMMARY | 2024-04-20 05:03 | XMS_ITS | Encounter Summary ---
Author Organization [facility] Address [address] [place] [address] Care Team Providers Care Grid Casting Machine Operator Helper Name Role Phone Seun Orta MD Primary [...] 01/10/2010 6:30 PM CDT Emergency ER at [address] [id number] Conversion, Doctor Jose Flores MD [address] [place] [phone] Fever; Abdominal pain, epigastric Discharge Disposition: [...] prescribed medicine as directed. ?? Only take nqpz-klq-yeedaer or prescription medicines for pain, discomfort or [...] Document Re-Released: 03/08/2009 ExitCare?? Patient Information ??2009 [employer]. Abdominal Pain Abdominal (belly) pain can be [...] ordered by your caregiver. ?? Only take dihb-sce-isqcrys or prescription medicines for pain, discomfort or [...] Document Re-Released: 06/22/2009 ExitCare?? Patient Information ??2009 [employer]. * Discharge Instructions* Document, Scanned - 01/13/2010 [...] PM CDT 01/10/2010 4:21 PM Jovanny Zaman [id number] History Chief Complaint Patient presents with ??? [...] PM CDT 01/10/2010 4:00 PM Jovanny Zaman [id number] History Chief Complaint Patient presents with ??? [...] The lung bases are clear. Procedure Note Dbe, [place], MD - 01/11/2010 Exam: Abdomen, supine [...] 4:40 PM CDT) Comment Manual Diff Done [facility] Band % Manual 8 % [facility] Neutrophils % Manual 71(H) 20 - 70 % [facility] Lymphocytes % Manual 9(L) 16 - 70 % [facility] Monocytes % Manual 12 3 - 13 % [facility] RBC Morphology Normal [facility] BLOOD SPECIMEN / Unknown 01/10/2010 4:40 PM CDT 01/10/2010 5:04 PM CDT Jose Flores MD LAB - HEMATOLOGY O RDERALAURYN Performing Organization Address [facility] de Phone Number [facility] [address] [place] [address] * CULTURE BLOOD (01/10/2010 4:40 PM CDT) Report [facility] Comment: Final - BOTTLE(S) RECEIVED- AEROBIC/ANAEROBIC BOTTLES CULTURE No growth PERIPHERAL BLOOD / Unknown 01/10/2010 4:40 PM CDT 01/10/2010 4:51 PM CDT Ashvin Varela MD LAB - MICROBIOLOGY O RDERABLES Performing Organization Address [facility] Co de Phone Number [facility] [address] [place] [address] * CBC W AUTO DIFFERENTIAL (01/10/2010 4:40 PM CDT) WBC 11.26 5.0 - 14.5 K/cumm [facility] RBC 4.46 3.90 - 5.30 mill/cumm [facility] Hemoglobin 12.3 11.5 - 13.5 gm/dl [facility] Hematocrit 35.4 34.0 - 40.0 % [facility] MCV 79.4 75.0 - 87.0 cu microns [facility] MCH 27.6 24.0 - 30.0 uug [facility] MCHC 34.7 31.0 - 37.0 % [facility] RDW 12.8 % [facility] MPV 11.3 fl [facility] Platelet Count 294 100 - 400 K/cumm [facility] Comment Manual Diff Done [facility] BLOOD SPECIMEN / Unknown 01/10/2010 4:40 PM CDT 01/10/2010 4:50 PM CDT Ashvin Varela MD LAB - HEMATOLOGY ORD ERABLES Performing Organization Address [facility] Co de Phone Number [facility] [address] [place] [address] * (ABNORMAL) LIPASE BLOOD (01/10/2010 4:40 PM CDT) Lipase 22(L) 23 - 300 Units/L [facility] Specimen Type/Conditio n mod hemolysis [facility] BLOOD SPECIMEN / Unknown 01/10/2010 4:40 PM CDT 01/10/2010 4:50 PM CDT Ashvin Varela MD LAB - CHEMISTRY ORDE LORENZO Performing Organization Address City/[facility]/ZIP Co de Phone Number [facility] [address] [place] [address] * AMYLASE BLOOD (01/10/2010 4:40 PM CDT) Amylase 33 30 - 100 Units/L [facility] Specimen Type/Conditio n mod hemolysis [facility] BLOOD SPECIMEN / Unknown 01/10/2010 4:40 PM CDT 01/10/2010 4:50 PM CDT Ashvin Varela MD LAB - CHEMISTRY ORDE LORENZO Performing Organization Address City/[facility]/ZIP Co de Phone Number [facility] [address] [place] [address] * (ABNORMAL) COMPREHENSIVE METABOLIC PANEL (01/10/2010 4:40 PM CDT) Sodium 136(L) 137 - 145 mmol/L [facility] Potassium 5.2(H) 3.5 - 5.1 mmol/L [facility] Chloride 102 98 - 107 mmol/L [facility] CO2 20.3 18 - 27 mmol/L [facility] Glucose 95 70 - 106 mg/dl [facility] BUN 12.8 7 - 18 mg/dl [facility] Calcium 9.3 8.8 - 10.1 mg/dl [facility] Bilirubin Total 1.5(H) 0.6 - 1.4 mg/dl [facility] Protein Total 8.4(H) 5.9 - 7.8 gm/dl [facility] Albumin 5.0 3.5 - 5.2 gm/dl [facility] ALT 7(L) 10 - 25 Units/L [facility] AST 67(H) 15 - 50 Units/L [facility] Alkaline Phosphatase 238 150 - 380 Units/L [facility] Creatinine 0.42 0.03 - 0.59 mg/dl [facility] Specimen Type/Condition mod hemolysis [facility] BLOOD SPECIMEN / Unknown 01/10/2010 4:40 PM CDT 01/10/2010 4:50 PM CDT Ashvin Varela MD LAB - CHEMISTRY JOBY VENTURA [facility] Organization Address City/State/ZIP Co de Phone Number [facility] [address] [place] [phone] * XR CHEST PA AND LATERAL (01/10/2010 [...] RN) documented in this encounter Care Teams Grid Casting Machine Operator Helper Relationship Specialty Start Date End Date Seun Orta MD [address] [place] [address] PCP - General 01/10/10 03/10/12 documented as of this encounter
== END 2024-04-13 11:11 | disposition home or self-care (01) ==
PROVIDERS: Emergency Provider Emergency Medicine
DX: N20.1 Calculus of ureter (principal)
CPT/HCPCS: 36415; 74176; 80053; 81001; 85025; 87086; 96361; 96374; 96375; 99284; J1885; J2270; J2405; J7030